=== PATIENT | female | born 1975 | race Caucasian/White ===

== ENCOUNTER 2022-11-05 07:02 | Emergency (ER) | payer OTHER ==
[~2022-11-05] VITALS: Ht 162.6 cm; Wt 74.8 kg
[2022-11-05 07:05] VITALS: BP 122/79; PULSE 83; RESP 16; TEMP 97.6; O2SAT 99
--- NOTE | 2022-11-05 07:05 | NUR ---
TO BED AMBULATORY
--- NOTE | 2022-11-05 07:50 | NUR ---
Pt comes in to er for c/o dysuria for 7-10 days, was taking Macrobid and AZO without relief. Denies fevers/chills/vomitting. reports biateral flank pain.
--- NOTE | 2022-11-05 08:00 | NUR ---
DR COFFEY IN ROOM FOR EXAM
[2022-11-05 08:01] VITALS: O2SAT 99
[2022-11-05] MEDS ORDERED: CIPR500T4 PO (08:03)
[2022-11-05] MEDS ORDERED: PHEN-1877 PO (08:03)
[2022-11-05] MEDS ORDERED: IBUP-2213 PO (08:03)
[2022-11-05] MEDS ORDERED: ONDA8TAB87 PO (08:03)
== END 2022-11-05 08:07 | disposition home or self-care (01) ==
LOC: MED 07:02
DX: N12 Tubulo-interstitial nephritis, not specified as acute or chronic (principal); Z79.899 Other long term (current) drug therapy
CPT/HCPCS: 81002; 81025; 87086; 99283